=== PATIENT | female | born 1945 | race Two or more races ===

== ENCOUNTER 2020-07-06 23:34 | Emergency (ER) | payer OTHER ==
[~2020-07-06] VITALS: Ht 154.9 cm; Wt 59.9 kg
[2020-07-07] MEDS ORDERED: VISTARIL25 MG PO (00:59)
== END 2020-07-07 01:07 | disposition home or self-care (01) ==
LOC: ER 23:34
DX: R00.0 Tachycardia, unspecified (principal); F41.1 Generalized anxiety disorder; F43.0 Acute stress reaction

== ENCOUNTER 2020-08-01 12:58 | Emergency (ER) | payer OTHER ==
[~2020-08-01] VITALS: Ht 157.5 cm; Wt 59.0 kg
[~2020-08-01 12:58] MED LIST: VISTARIL25 MG PO
[2020-08-01] MEDS ORDERED: MULTI VITAMIN1 EACH (13:09)
[2020-08-01] MEDS ORDERED: VISTARIL25 MG PO (16:57)
== END 2020-08-01 17:14 | disposition home or self-care (01) ==
LOC: ER 12:58
DX: R53.1 Weakness (principal); E86.0 Dehydration; R42 Dizziness and giddiness; Z03.818 Encounter for observation for suspected exposure to other biological agents ruled out